=== PATIENT | female | born 1975 | race Hispanic/Latino ===

== ENCOUNTER 2021-09-14 10:15 | Outpatient (CLI) | payer OTHER ==
--- NOTE | 2021-09-14 13:06 | XRay Report ---
Cervical spine 5 views INDICATION: Limited movement FINDINGS: Postoperative changes seen at C3-C4 C6-C7. Alignment appears normal. Endplate degenerative change throughout. No prevertebral soft tissue swelling. Odontoid appears normal. Signer Name: Aldair Joel MD Signed: 09/14/2021 1:02 PM Workstation Name: [id number]
--- NOTE | 2021-09-14 14:09 | XRay Report ---
Right knee 2 views INDICATION: Knee pain FINDINGS: There is degenerative change and patellofemoral joint medial joint compartment with joint s pace narrowing. Trace joint effusion. No acute fracture. Signer Name: Aldair Joel MD Signed: 09/14/2021 2:05 PM Workstation Name: [id number]
--- NOTE | 2021-09-14 14:42 | XRay Report ---
Lumbar spine-3 views INDICATION: BACK PAIN. COMPARISON: None. IMPRESSION: Minimal levoscoliosis centered at L3 with mild straightening of normal lumbar lordosis. Mild multilevel discogenic DJD. No acute osseous or soft tissue abnormality. Signer Name: Issac Solis MD Signed: 09/14/2021 2:37 PM Workstation Name: [id number]
== END 2021-09-14 10:16 | disposition home or self-care (01) ==
LOC: XRAY 10:15
PROVIDERS: ATTEND Internal Medicine
DX: M17.11 Unilateral primary osteoarthritis, right knee (principal); M47.817 Spondylosis without myelopathy or radiculopathy, lumbosacral region; M41.87 Other forms of scoliosis, lumbosacral region; M47.812 Spondylosis without myelopathy or radiculopathy, cervical region
CPT/HCPCS: 72040; 72100